=== PATIENT | male | born 1930 | race Caucasian/White ===

== ENCOUNTER 2018-05-20 14:00 | Inpatient (IN) | payer BC ==
[2018-05-20] MEDS ORDERED: SODIUM CHLORIDE 1,000 ML IV STA (14:40)
[2018-05-20] MEDS ORDERED: PIPERACILLIN/TAZOB 4.5 GM 4.5 GM in DEXTROSE 5%-WATER 100 ML IVPB ONE (14:59)
[2018-05-20] MEDS ORDERED: VANCOMYCIN 1,500 MG in DEXTROSE 5%-WATER - 500 ML IVPB ONE (14:59)
--- NOTE | 2018-05-20 15:06 | PDOC ---
History of Present Illness - General Chief Complaint: Wound Stated Complaint: FOOT INFECTION Time Seen by Provider: 05/20/18 14:21 History Source: Patient Exam Limitations: No Limitations - History of Present Illness Initial Comments: This is an 88 YOM with h/o NIDDM, PVD s/p leg stenting, and HTN who was instructed to come to the ED for admission by Dr. Goodwin. The patient reports that for the past few weeks he has had a worsening infection to the left great toe in the nailbed, and the nail of this digit is chronically infected with onychomycosis. The patient notes pain when he touches or moves the area, and also notes worsening swelling and redness to the area. He denies any systemic symptoms (no f/c/n/v/d/c, streaking redness, or other new symptoms) . He was at a wound care appointment for this wound earlier today and based on his evaluation there he was instructed to come to the ED. Past History - Past Medical History Allergies/Adverse Reactions: Allergies Allergy/AdvReac Type Severity Reaction Status Date / Time tomato Allergy Mild Itching Verified 05/20/18 14:05 Home Medications: Ambulatory Orders Aspirin [Megan Chewable] 81 mg PO DAILY 09/03/15 Glipizide/Metformin HCl [Glipizide-Metformin 5-500 mg] 1 tab PO BID 05/20/18 Metoprolol Succinate 25 mg PO DAILY 05/20/18 Ticagrelor [Brilinta -] 90 mg PO BID 05/20/18 COPD: No DVT: No Diabetes: Yes (Type 2) - Immunization History Immunization Up to Date: Yes - Suicide/Smoking/Psychosocial Hx Smoking History: Unknown if ever smoked Have you smoked in the past 12 months: No Information on smoking cessation initiated: No Hx Alcohol Use: No Drug/Substance Use Hx: No Substance Use Type: None Review of Systems - Review of Systems Able to Perform ROS?: Yes Constitutional: No: Chills, Fever, Unexplained wgt Loss HEENTM: No: Nose Congestion, Throat Pain Respiratory: No: Cough, Shortness of Breath Cardiac (ROS): No: Chest Pain, Palpitations ABD/GI: No: Constipated, Diarrhea, Nausea, Vomiting : No: Burning, Dysuria Musculoskeletal: No: Back Pain, Neck Pain Integumentary: Yes: Other (left great toe swelling, redness, discharge, pain). No: Bruising, Rash Neurological: No: Headache, Numbness, Tingling, Weakness, Dizziness Endocrine: No: Unexplained Weight Gain, Unexplained Weight Loss *Physical Exam - Vital Signs Last Vital Signs Temp Pulse Resp BP Pulse Ox 97.4 F L 72 16 133/92 98 05/20/18 14:05 05/20/18 14:05 05/20/18 14:05/20/18 14:05/20/18 14:05 - Physical Exam General Appearance: Yes: Nourished. No: Apparent Distress HEENT: positive: EOMI, Normal Voice, Hearing Grossly Normal. negative: Scleral Icterus (R), Scleral Icterus (L), Nasal Congestion Neck: positive: Trachea midline, Supple. negative: Tender, Rigid Respiratory/Chest: positive: Lungs Clear, Normal Breath Sounds. negative: Respiratory Distress, Crackles, Rhonchi, Stridor, Wheezing Cardiovascular: positive: Regular Rhythm, Regular Rate. negative: Murmur Gastrointestinal/Abdominal: positive: Normal Bowel Sounds, Soft. negative: Tender, Organomegaly, Pulsatile Mass, Guarding Musculoskeletal: positive: Normal Inspection. negative: Decreased Range of Motion, Vertebral Tenderness Extremity: positive: Normal Capillary Refill, Normal Inspection, Normal Range of Motion. negative: Tender, Cyanosis Integumentary: positive: Normal Color, Dry, Warm. negative: Erythema, Rash, Bruising Neurologic: positive: hoe worker II-XII NML intact, Fully Oriented, Alert, Normal Mood/ Affect, Normal Response, Motor Strength 5/5 Heart Score/ECG Review #1 Sinus rhythm, rate of 67, normal axis, 1st degree AV block, one PVC, no ischemic ST-T changes. ED Treatment Course - LABORATORY CBC & Chemistry Diagram: 05/21/18 07:22 05/21/18 07:22 - RADIOLOGY Radiology Studies Ordered: Category Date Time Status CHEST X-RAY PORTABLE* [RAD] Stat Radiology 05/20/18 14:40 Ordered TOE(S) LEFT [RAD] Stat Radiology 05/20/18 14:42 Ordered Medical Decision Making - Medical Decision Making Pt with DM p/w non-healing foot ulcer now appearing infected. Initial Vital Signs Temp Pulse Resp BP Pulse Ox 97.4 F L 72 16 133/92 98 05/20/18 14:05/20/18 14:05 05/20/18 14:05 05/20/18 14:05 05/20/18 14:05 Exam: As noted in Physical Exam section. DDX IBNLT: infected foot ulcer/nailbed, cellulitis, osteomyelitis, necrotizing soft tissue infection, necrotizing myositis, septic arthritis, gangrene, sepsis , etc. W/U ordered: CBCD CMP Mg Phos Lactate BCx Coags T&S ESR CRP EKG CXR Wound Culture UA UCx and X-ray leg to r/o gas. TX ordered: Ofirmev, vancomycin, Zosyn EKG: Reviewed; results as noted in ECG Review section. CXR: Nothing acute XR ankle/foot/toes: Nothing acute Laboratory Tests 05/20/18 05/20/18 05/20/18 14:40 15:00 15:00 WBC 9.7 RBC 4.71 Hgb 14.1 Hct 40.6 MCV 86.2 MCH 30.0 MCHC 34.8 RDW 13.6 Plt Count 164 MPV 8.0 Absolute Neuts (auto) 6.6 Neutrophils % 68.7 Lymphocytes % 13.5 Monocytes % 15.6 H Eosinophils % 1.2 Basophils % 1.0 Nucleated RBC % 0 PT with INR 13.20 H INR 1.17 H PTT (Actin FS) 28.4 Sodium Potassium Chloride Carbon Dioxide Anion Gap BUN Creatinine Creat Clearance w eGFR Random Glucose Lactic Acid 1.8 Calcium Total Bilirubin AST ALT Alkaline Phosphatase C-Reactive Protein Total Protein Albumin Blood Type Antibody Screen 05/20/18 05/20/18 15:00 15:00 WBC RBC Hgb Hct MCV MCH MCHC RDW Plt Count MPV Absolute Neuts (auto) Neutrophils % Lymphocytes % Monocytes % Eosinophils % Basophils % Nucleated RBC % PT with INR INR PTT (Actin FS) Sodium 140 Potassium 3.9 Chloride 107 Carbon Dioxide 26 Anion Gap 7 L BUN 14 Creatinine 1.3 Creat Clearance w eGFR 52.22 Random Glucose 158 H Lactic Acid Calcium 8.7 Total Bilirubin 1.0 AST 20 ALT 22 Alkaline Phosphatase 155 H C-Reactive Protein 0.6 H Total Protein 7.1 Albumin 3.7 Blood Type O POSITIVE Antibody Screen Negative Reassessment: Patient feels well, comfortable with plan to stay. ADMIT The Pt is unsafe for discharge at this time. They require further hospital observation, workup, and treatment. Microblog sent to [facility] for admission. Spoke with admitting team retail wireless sales representative, in agreement Pt to be admitted. Decision to Admit order placed to admitting team covering attending. *DC/Admit/Observation/Transfer Diagnosis at time of Disposition: Wound infection, PVD (peripheral vascular disease) Diabetes Qualifiers: Diabetes mellitus type: other specified (including SHIN) Diabetes mellitus halfway insulin use: unspecified buttermaker helper insulin use status Diabetes mellitus complication status: with unspecified complications Qualified Code(s): E13.8 - Other specified diabetes mellitus with unspecified complications - Discharge Dispostion Condition at time of disposition: Guarded Decision to Admit order: Yes - Referrals - Patient Instructions - Post Discharge Activity
[2018-05-20] MEDS ORDERED: PIPERACILLIN/TAZOB 4.5 GM 4.5 GM/100 ML BAG IVPB ONE (15:15)
[2018-05-20 15:19] LABS: EOS % 1.2 % (0-4.5); HEMATOCRIT 40.6 % (35.4-49); HEMOGLOBIN 14.1 GM/dL (11.7-16.9); LYMPH % 13.5 % (8-40); MCHC 34.8 g/dl (32.0-35.9); MEAN CELL VOLUME 86.2 fl (80-96); MONO % 15.6 % (3.8-10.2); NEUT % 68.7 % (42.8-82.8); PLATELET COUNT 164 K/MM3 (134-434); RBC 4.71 M/mm3 (4.00-5.60); RDW 13.6 % (11.9-15.9); WHITE BLOOD COUNT 9.7 K/mm3 (4.0-10.0)
[2018-05-20 15:29] LABS: INR 1.17 (0.83-1.09); PROTHROMBIN TIME (PATIENT) 13.2 SEC (9.7-13.0)
[2018-05-20 15:32] LABS: ACTIVATED PTT 28.4 SECONDS (25.2-36.5)
[2018-05-20 15:35] LABS: ALBUMIN 3.7 g/dl (3.4-5.0); ANION GAP 7 (8-16); BLOOD UREA NITROGEN 14 mg/dL (7-18); CALCIUM 8.7 mg/dL (8.5-10.1); CHLORIDE 107 mmol/L (98-107); CO2 26 mmol/L (21-32); CREATININE 1.3 mg/dL (0.7-1.3); GLUCOSE,RANDOM 158 mg/dL (74-106); POTASSIUM 3.9 mmol/L (3.5-5.1); SGOT/AST 20 U/L (15-37); SGPT/ALT 22 U/L (12-78); SODIUM 140 mmol/L (136-145); TOT PROT 7.1 g/dl (6.4-8.2)
[2018-05-20 15:36] LABS: ALK PHOS 155 U/L (45-117)
--- NOTE | 2018-05-20 17:33 | PDOC ---
Attending Attestation - Resident Resident Name: Gabby Kelly - ED Attending Attestation I have performed the following: I have examined & evaluated the patient, The case was reviewed & discussed with the resident, I agree w/resident's findings & plan, Exceptions are as noted - HPI HPI: 05/20/18 17:31 The patient is an 88 year old male with a significant past medical history of peripheral vascular disease and non-insulin dependent diabetes who presents to the emergency department for evaluation of left toe pain. The patient reports moderate left toe pain. Pt presents with a left great toe nail bed infection that has been ongoing for 3 weeks. He notes the pain is exacerbated with toe movement. He notes a decrease in sensation of both feet secondary to his diabetes. Pt was seen at the wound care clinic today who sent him down to the emergency department for further workup and admission. The patient denies chest pain, shortness of breath, headache, and dizziness. Denies fever, chills, nausea, vomiting, and any bowel/urinary symptoms. Allergies: Tomato Social History: No reported alcohol, cigarette, or drug use. PCP: Dr. Prabhakar Monique - Physicial Exam PE: 05/20/18 17:32 agree with resident exam - Medical Decision Making 05/20/18 17:33 Pt to be admitted for diabetic foot ulcer. Vitals stable. Covered with Marisol/ Valentino
[2018-05-20 17:50] VITALS: BMI 23.2
[2018-05-20] MEDS ORDERED: PIPERACILLIN/TAZOBACTAM 3.375 GM VIAL IVPB ONE ×2 (18:15→23:30)
[2018-05-20] MEDS ORDERED: DEXTROSE 5%-WATER - 50 ML IVPB ONE ×2 (18:16→23:30)
[2018-05-20] MEDS: PIPERACILLIN/TAZOB 3.375 GM 3.375 GM in DEXTROSE 5%-WATER - 50 ML IVPB SCH (19:00)
[2018-05-21] MEDS: PIPERACILLIN/TAZOB 3.375 GM 3.375 GM in DEXTROSE 5%-WATER - 50 ML IVPB SCH ×3 (01:08→17:47)
[2018-05-21] MEDS ORDERED: ACETAMINOPHEN 325 MG TABLET (FP) PO PRN (06:13)
[2018-05-21] MEDS: glipiZIDE 5 MG TABLET (FP) PO SCH ×2 (06:27→16:25)
[2018-05-21] MEDS: INSULIN SLIDING SCALE (NOVOLOG) 1 VIAL SQ SCH ×4 (06:33→21:11)
[2018-05-21] MEDS ORDERED: metFORMIN HCL 500 MG TABLET (FP) PO SCH (07:00)
[2018-05-21 07:45] LABS: HEMATOCRIT 36.3 % (35.4-49); HEMOGLOBIN 12.8 GM/dL (11.7-16.9); MCH 30.1 pg (25.7-33.7); MCHC 35.4 g/dl (32.0-35.9); MEAN CELL VOLUME 85.1 fl (80-96); MEAN PLT VOLUME 8.1 fl (7.5-11.1); PLATELET COUNT 123 K/MM3 (134-434); RBC 4.27 M/mm3 (4.00-5.60); RDW 13.1 % (11.9-15.9); WHITE BLOOD COUNT 6.9 K/mm3 (4.0-10.0)
[2018-05-21 08:01] LABS: ALBUMIN 3.1 g/dl (3.4-5.0); ANION GAP 8 (8-16); BLOOD UREA NITROGEN 12 mg/dL (7-18); CALCIUM 8.4 mg/dL (8.5-10.1); CHLORIDE 112 mmol/L (98-107); CHOLESTEROL 137 mg/dL (50-200); CO2 23 mmol/L (21-32); CREATININE 1.2 mg/dL (0.7-1.3); GLUCOSE,RANDOM 147 mg/dL (74-106); POTASSIUM 3.8 mmol/L (3.5-5.1); SGOT/AST 19 U/L (15-37); SGPT/ALT 17 U/L (12-78); SODIUM 143 mmol/L (136-145)
[2018-05-21 08:03] LABS: ALK PHOS 133 U/L (45-117); BILIRUBIN,TOTAL 0.9 mg/dL (0.2-1.0); HDL CHOLESTEROL 27 mg/dL (40-60); TOT PROT 6.1 g/dl (6.4-8.2); TRIGLYCERIDES 238 mg/dL (35-160)
[2018-05-21] MEDS ORDERED: DEXTROSE 5%-WATER - 50 ML IVPB ONE ×3 (09:17→23:26)
[2018-05-21] MEDS ORDERED: PIPERACILLIN/TAZOBACTAM 3.375 GM VIAL IVPB ONE ×3 (09:17→23:26)
[2018-05-21] MEDS ORDERED: PT OWN MED DRAWER 7, Y5N ONE (09:17)
[2018-05-21] MEDS: TICAGRELOR 90 MG TABLET PO SCH ×2 (09:26→21:09)
[2018-05-21] MEDS: metoPROLOL SUCCINATE 25 MG TAB.SR.24H (FP) PO SCH (09:26)
--- NOTE | 2018-05-21 10:14 | HP ---
Admitting History and Physical - Primary Care Physician PCP: Rose Becker - Admission Chief Complaint: diabetic foot ulcer History of Present Illness: This is an 88 YOM with h/o NIDDM, PVD s/p leg stenting, and HTN who was instructed to come to the ED for admission by Dr. Goodwin. The patient reports that for the past few weeks he has had a worsening infection to the left great toe in the nailbed, and the nail of this digit is chronically infected with onychomycosis. The patient notes pain when he touches or moves the area, and also notes worsening swelling and redness to the area. He denies any systemic symptoms (no f/c/n/v/d/c, streaking redness, or other new symptoms) . He was at a wound care appointment for this wound earlier today and based on his evaluation there he was instructed to come to the ED. Patient states that he was given Augmentin, but before he could pickle solution maker the prescription, he ended up in the ER. He denies any fever, pain or discomfort History Source: Patient, Medical Record Limitations to Obtaining History: No Limitations - Smoking History Smoking history: Unknown if ever smoked Have you smoked in the past 12 months: No - Alcohol/Substance Use Hx Alcohol Use: No Home Medications - Allergies Allergies/Adverse Reactions: Allergies Allergy/AdvReac Type Severity Reaction Status Date / Time tomato Allergy Mild Itching Verified 05/20/18 14:05 - Home Medications Home Medications: Ambulatory Orders Aspirin [Megan Chewable] 81 mg PO DAILY 09/03/15 Glipizide/Metformin HCl [Glipizide-Metformin 5-500 mg] 1 tab PO BID 05/20/18 Metoprolol Succinate 25 mg PO DAILY 05/20/18 Ticagrelor [Brilinta -] 90 mg PO BID 05/20/18 Review of Systems - Review of Systems Constitutional: reports: No Symptoms Eyes: reports: No Symptoms HENT: reports: No Symptoms Neck: reports: No Symptoms Cardiovascular: reports: No Symptoms Respiratory: reports: No Symptoms Gastrointestinal: reports: No Symptoms Genitourinary: reports: No Symptoms Breasts: reports: No Symptoms Reported Musculoskeletal: reports: Other (left great toe erythema) Integumentary: reports: No Symptoms Neurological: reports: No Symptoms Endocrine: reports: No Symptoms Hematology/Lymphatic: reports: No Symptoms Physical Examination Vital Signs: Vital Signs Temperature 98.1 F 05/21/18 05:00 Pulse Rate 87 05/21/18 05:00 Respiratory Rate 18 05/21/18 05:00 Blood Pressure 119/65 05/21/18 05:00 O2 Sat by Pulse Oximetry (%) 100 05/20/18 21:00 Constitutional: Yes: Well Nourished, No Distress, Calm Cardiovascular: Yes: Regular Rate and Rhythm Respiratory: Yes: Regular Gastrointestinal: Yes: Normal Bowel Sounds, Soft Musculoskeletal: Yes: WNL Extremities: Yes: WNL Edema: No Peripheral Pulses WNL: Yes Wound/Incision: Yes: Dressing Removed, Draining (mild) Neurological: Yes: Alert, Oriented Psychiatric: Yes: Alert, Oriented Labs: CBC, BMP 05/21/18 07:22 05/21/18 07:22 Problem List - Problems (1) Diabetes Assessment/Plan: -hold metformin during hospital stay -Novolog sliding scale -Diabetic diet -Check A1C -RD consult -Continue Glipizide -BGM ACHS Code(s): E11.9 - TYPE 2 DIABETES MELLITUS WITHOUT COMPLICATIONS (2) PVD (peripheral vascular disease) Code(s): I73.9 - PERIPHERAL VASCULAR DISEASE, UNSPECIFIED (3) Wound infection Assessment/Plan: -Podiatry consult -ID on board -IV abx -Await Wound culture -Awaiting triphasic bone scan, as he refuses to do MRI Code(s): T14.8XXA - OTHER INJURY OF UNSPECIFIED BODY REGION, INITIAL ENCOUNTER; L08.9 - LOCAL INFECTION OF THE SKIN AND SUBCUTANEOUS TISSUE, UNSP Assessment/Plan see problem list self ambulatory DVT prophylaxis: Heparin 5000 U TID Dispo: Home with VNS and wound care center
--- NOTE | 2018-05-21 10:34 | CON.ID ---
Consult Consult Specialty:: infectious diseases Referred by:: Reason for Consultation:: non healing wound and cellulitis of the foot - History of Present Illness Chief Complaint: non healing wound of the leg and cellulitits of the foot History of Present Illness: 88 year old male with a significant past medical history of peripheral vascular disease and non-insulin dependent diabetes who presents to the admitted for left toe pain. The patient reports moderate left toe pain. Pt presents with a left great toe nail bed infection that has been ongoing for 3 weeks. He notes the pain is exacerbated with toe movement. He notes a decrease in sensation of both feet secondary to his diabetes The patient denies chest pain, shortness of breath, headache, and dizziness. Denies fever, chills, nausea, vomiting, and any bowel/urinary symptoms. patient has multiple medical problems including dm cva pvd patient being admitted for cellulitits to see if the patient has osteo of the foot and wound infection otherwise patient is comfortable patient is a bit claustrophobic for mri and refuses to get one done - History Source History Provided By: Patient, Medical Record Limitations to Obtaining History: No Limitations - Alcohol/Substance Use Hx Alcohol Use: No - Smoking History Smoking history: Unknown if ever smoked Have you smoked in the past 12 months: No Home Medications - Allergies Allergies/Adverse Reactions: Allergies Allergy/AdvReac Type Severity Reaction Status Date / Time tomato Allergy Mild Itching Verified 05/20/18 14:05 - Home Medications Home Medications: Ambulatory Orders Aspirin [Megan Chewable] 81 mg PO DAILY 09/03/15 Glipizide/Metformin HCl [Glipizide-Metformin 5-500 mg] 1 tab PO BID 05/20/18 Metoprolol Succinate 25 mg PO DAILY 05/20/18 Ticagrelor [Brilinta -] 90 mg PO BID 05/20/18 Review of Systems - Review of Systems Constitutional: reports: No Symptoms Eyes: reports: No Symptoms HENT: reports: No Symptoms Neck: reports: No Symptoms Cardiovascular: reports: No Symptoms Respiratory: reports: No Symptoms Gastrointestinal: reports: No Symptoms Genitourinary: reports: No Symptoms Integumentary: reports: Change in Color, Erythema, Wound (left great toe) Neurological: reports: No Symptoms Endocrine: reports: No Symptoms Hematology/Lymphatic: reports: No Symptoms Psychiatric: reports: No Symptoms Physical Exam Vital Signs: Vital Signs Temperature 98.1 F 05/21/18 05:00 Pulse Rate 87 05/21/18 05:00 Respiratory Rate 18 05/21/18 05:00 Blood Pressure 119/65 05/21/18 05:00 O2 Sat by Pulse Oximetry (%) 100 05/20/18 21:00 Constitutional: Yes: Well Nourished, Calm, Mild Distress Cardiovascular: Yes: Regular Rate and Rhythm Respiratory: Yes: Regular, CTA Bilaterally Gastrointestinal: Yes: Normal Bowel Sounds, Soft Musculoskeletal: Yes: Other Extremities: Yes: Erythema (left foot), Other Integumentary: Yes: Erythema Wound/Incision: Yes: Clean/Dry Neurological: Yes: Alert, Oriented Psychiatric: Yes: Alert, Oriented Labs: CBC, BMP 05/21/18 07:22 05/21/18 07:22 Imaging - Results Chest X-ray: Report Reviewed, Image Reviewed X-ray: Image Reviewed (awaiting report) Assessment/Plan patient coming with cellulittis of the leg and toe injury with dm and pvd with a worry for infection and suspected osteo r/o osteo wound infection cellulitis of the left foot pain left foot plan continue abx await for wound cx to be back patient refusing mri will get a triphase bone scan
--- NOTE | 2018-05-21 14:28 | CONSULT ---
Consult - text type - Consultation Consultation Note: Patient sent by me to ER from [facility] yesterday for cellulitis left big toe. vss. Tmax 97.5 +greatly improved cellulitis left big toe, macerated nail bed, wbc=6.9, awaiting triphasic bone scan results r/o om cellulitis Awaiting triphasic bone scan. Betadine dressing change daily to left big toe. IVABX as per ID apparent positive blood culture. Reviewed xray.
[2018-05-21] MEDS: ROSUVASTATIN CA 5 MG TABLET (FP) PO SCH (21:36)
[2018-05-22] MEDS: PIPERACILLIN/TAZOB 3.375 GM 3.375 GM in DEXTROSE 5%-WATER - 50 ML IVPB SCH ×3 (01:26→17:52)
[2018-05-22] MEDS: INSULIN SLIDING SCALE (NOVOLOG) 1 VIAL SQ SCH ×4 (06:12→21:57)
[2018-05-22] MEDS: glipiZIDE 5 MG TABLET (FP) PO SCH ×2 (06:12→16:55)
[2018-05-22 08:04] LABS: BASO % 1.4 % (0-2.0); EOS % 3.4 % (0-4.5); HEMATOCRIT 36.1 % (35.4-49); HEMOGLOBIN 12.8 GM/dL (11.7-16.9); LYMPH % 18.9 % (8-40); MCH 30.5 pg (25.7-33.7); MCHC 35.6 g/dl (32.0-35.9); MEAN CELL VOLUME 85.6 fl (80-96); MEAN PLT VOLUME 8.3 fl (7.5-11.1); MONO % 14.5 % (3.8-10.2); NEUT % 61.8 % (42.8-82.8); PLATELET COUNT 130 K/MM3 (134-434); RBC 4.22 M/mm3 (4.00-5.60); RDW 13.2 % (11.9-15.9); WHITE BLOOD COUNT 6.2 K/mm3 (4.0-10.0)
[2018-05-22 08:46] LABS: ANION GAP 11 (8-16); BLOOD UREA NITROGEN 12 mg/dL (7-18); CALCIUM 8.5 mg/dL (8.5-10.1); CHLORIDE 110 mmol/L (98-107); CO2 22 mmol/L (21-32); CREATININE 1.1 mg/dL (0.7-1.3); GLUCOSE,RANDOM 114 mg/dL (74-106); POTASSIUM 3.7 mmol/L (3.5-5.1); SGOT/AST 19 U/L (15-37); SGPT/ALT 18 U/L (12-78); SODIUM 143 mmol/L (136-145)
[2018-05-22 08:48] LABS: ALK PHOS 122 U/L (45-117); BILIRUBIN,TOTAL 0.9 mg/dL (0.2-1.0)
--- NOTE | 2018-05-22 09:12 | EKG ---
Test Reason : Blood Pressure : / mmHG Vent. Rate : 067 BPM Atrial Rate : 067 BPM P-R Int : 232 ms QRS Dur : 082 ms QT Int : 436 ms P-R-T Axes : 033 -02 039 degrees QTc Int : 460 ms POOR DATA QUALITY, INTERPRETATION MAY BE ADVERSELY AFFECTED SINUS RHYTHM WITH 1ST DEGREE A-V BLOCK WITH OCCASIONAL PREMATURE VENTRICULAR COMPLEXES OTHERWISE NORMAL ECG NO PREVIOUS ECGS AVAILABLE Confirmed by KARINA SPRAGUE, LUIS ([id number]) on 05/22/2018 9:12:18 AM Referred By: Confirmed By:LUIS COLLINS MD
[2018-05-22] MEDS ORDERED: PIPERACILLIN/TAZOBACTAM 3.375 GM VIAL IVPB ONE ×2 (10:41→17:46)
[2018-05-22] MEDS ORDERED: PT OWN MED DRAWER 7, Y5N ONE ×2 (10:41→20:32)
[2018-05-22] MEDS ORDERED: DEXTROSE 5%-WATER - 50 ML IVPB ONE ×2 (10:41→17:47)
[2018-05-22] MEDS: TICAGRELOR 90 MG TABLET PO SCH ×2 (10:43→21:55)
[2018-05-22] MEDS: metoPROLOL SUCCINATE 25 MG TAB.SR.24H (FP) PO SCH (10:43)
--- NOTE | 2018-05-22 10:51 | PN ---
Progress Note, Physician History of Present Illness: Infectious Disease Progress note: Pt seen and examined. States he notices less Lt 1st toe erythema. Tolerating antibiotics, without specific complaints. - Current Medication List Current Medications: Active Medications Acetaminophen (Tylenol -) 650 mg PO Q6H PRN PRN Reason: PAIN OR FEVER Glipizide (Glucotrol -) 5 mg PO BID@0700,1630 [facility] Last Admin: 05/22/18 06:12 Dose: 5 mg Piperacillin Sod/Tazobactam (Sod 3.375 gm/ Dextrose) 50 mls @ 100 mls/hr IVPB Q8H-IV [facility]; Protocol Last Admin: 05/22/18 01:26 Dose: 100 mls/hr Insulin Aspart (Novolog Vial Sliding Scale -) 1 vial SQ ACHS [facility]; Protocol Last Admin: 05/22/18 06:12 Dose: Not Given Metoprolol Succinate (Toprol Xl -) 25 mg PO DAILY [facility] Last Admin: 05/21/18 09:26 Dose: 25 mg Rosuvastatin Calcium (Crestor -) 5 mg PO HS [facility] Last Admin: 05/21/18 21:36 Dose: 5 mg Ticagrelor (Brilinta -) 90 mg PO BID [facility] Last Admin: 05/21/18 21:09 Dose: 90 mg - Objective Vital Signs: Vital Signs Temperature 98 F 05/22/18 08:29 Pulse Rate 87 05/22/18 08:29 Respiratory Rate 20 05/22/18 08:29 Blood Pressure 132/76 05/22/18 08:29 O2 Sat by Pulse Oximetry (%) 98 05/21/18 21:00 Constitutional: Yes: No Distress, Calm Cardiovascular: Yes: Regular Rate and Rhythm Respiratory: Yes: Regular Gastrointestinal: Yes: Normal Bowel Sounds, Soft Genitourinary: Yes: WNL Musculoskeletal: Yes: WNL Wound/Incision: Yes: Other (Lt first toe minimal erythema, +purulent drainage from underneath distal portion of nailbed, no necrosis/cyanosis) Neurological: Yes: Alert, Oriented Labs: CBC, BMP 05/22/18 06:30 05/22/18 06:30 INR, PTT INR 1.17 (0.83-1.09) H 05/20/18 15:00 Microbiology 05/20/18 16:40 Wound Gram Stain - Final 05/20/18 16:40 Wound Wound Culture - Preliminary Presumptive Mssa (Pbp2a Neg) Pending Organism 05/20/18 14:45 Blood - Peripheral Venous Blood Culture - Preliminary Alpha Hemolytic Streptococcus 05/20/18 15:00 Blood - Peripheral Venous Blood Culture - Preliminary Pending Organism - ....Imaging Other: Report Reviewed (3-phase bone scan Lt foot: +indication of OM in Lt 1st toe distal phalanx) Problem List - Problems (1) Diabetes Code(s): E11.9 - TYPE 2 DIABETES MELLITUS WITHOUT COMPLICATIONS Qualifiers: Diabetes mellitus type: other specified (including SHIN) Diabetes mellitus long term care administrator insulin use: unspecified prison insulin use status Diabetes mellitus complication status: with unspecified complications Qualified Code(s) : E13.8 - Other specified diabetes mellitus with unspecified complications (2) PVD (peripheral vascular disease) Code(s): I73.9 - PERIPHERAL VASCULAR DISEASE, UNSPECIFIED (3) Wound infection Code(s): T14.8XXA - OTHER INJURY OF UNSPECIFIED BODY REGION, INITIAL ENCOUNTER; L08.9 - LOCAL INFECTION OF THE SKIN AND SUBCUTANEOUS TISSUE, UNSP Assessment/Plan 88 y.o. male with PMH of NIDDM, PVD, Lt 1st toe trauma/wound presenting with Lt toe/foot erythema/purulent drainage x 3 wks, decreased sensation in feet. Triple -phase bone scan results and microbiology results noted Lt distal 1st toe cellulitis/ Acute OM Streptococcal bacteremia NIDDM PVD - continue current antibiotics, adjust once final culture results available - repeat Blood cultures - podiatry f/u - continue wound care - needs tight glycemic control
--- NOTE | 2018-05-22 15:47 | PN ---
Progress Note, Physician Chief Complaint: EVENTS AND NOTES REVIEWED AWAKE ALERT DENIES PAIN - Current Medication List Current Medications: Active Medications Acetaminophen (Tylenol -) 650 mg PO Q6H PRN PRN Reason: PAIN OR FEVER Glipizide (Glucotrol -) 5 mg PO BID@0700,1630 [facility] Last Admin: 05/22/18 06:12 Dose: 5 mg Piperacillin Sod/Tazobactam (Sod 3.375 gm/ Dextrose) 50 mls @ 100 mls/hr IVPB Q8H-IV [facility]; Protocol Last Admin: 05/22/18 10:44 Dose: 100 mls/hr Insulin Aspart (Novolog Vial Sliding Scale -) 1 vial SQ ACHS [facility]; Protocol Last Admin: 05/22/18 11:48 Dose: 2 units Metoprolol Succinate (Toprol Xl -) 25 mg PO DAILY [facility] Last Admin: 05/22/18 10:43 Dose: 25 mg Rosuvastatin Calcium (Crestor -) 5 mg PO HS [facility] Last Admin: 05/21/18 21:36 Dose: 5 mg Ticagrelor (Brilinta -) 90 mg PO BID [facility] Last Admin: 05/22/18 10:43 Dose: 90 mg - Objective Vital Signs: Vital Signs Temperature 98.0 F 05/22/18 15:20 Pulse Rate 59 L 05/22/18 15:20 Respiratory Rate 18 05/22/18 15:20 Blood Pressure 156/64 05/22/18 15:20 O2 Sat by Pulse Oximetry (%) 98 05/21/18 21:00 Constitutional: Yes: Mild Distress Eyes: Yes: WNL HENT: Yes: WNL Neck: Yes: WNL Cardiovascular: Yes: WNL Respiratory: Yes: WNL Gastrointestinal: Yes: WNL Genitourinary: Yes: WNL Musculoskeletal: Yes: Other Extremities: Yes: Other Edema: No Peripheral Pulses WNL: Yes Integumentary: Yes: Pressure Ulcer, Rash, Other Wound/Incision: Yes: Dressing Dry and Intact Neurological: Yes: Pre-Existing Deficit ...Motor Strength: LLE Psychiatric: Yes: WNL Labs: CBC, BMP 05/22/18 06:30 05/22/18 06:30 INR, PTT INR 1.17 (0.83-1.09) H 05/20/18 15:00 Problem List - Problems (1) Osteomyelitis Code(s): M86.9 - OSTEOMYELITIS, UNSPECIFIED (2) Diabetic foot ulcer with osteomyelitis Code(s): E11.621 - TYPE 2 DIABETES MELLITUS WITH FOOT ULCER; E11.69 - TYPE 2 DIABETES MELLITUS WITH OTHER SPECIFIED COMPLICATION; L97.509 - NON-PRESSURE CHRONIC ULCER OTH PRT UNSP FOOT W UNSP SEVERITY; M86.9 - OSTEOMYELITIS, UNSPECIFIED (3) Diabetic neuropathy Code(s): E11.40 - TYPE 2 DIABETES MELLITUS WITH DIABETIC NEUROPATHY, UNSP (4) Diabetes Code(s): E11.9 - TYPE 2 DIABETES MELLITUS WITHOUT COMPLICATIONS Qualifiers: Diabetes mellitus type: other specified (including SHIN) Diabetes mellitus watermelon inspector insulin use: unspecified watermelon inspector insulin use status Diabetes mellitus complication status: with unspecified complications Qualified Code(s) : E13.8 - Other specified diabetes mellitus with unspecified complications (5) PVD (peripheral vascular disease) Code(s): I73.9 - PERIPHERAL VASCULAR DISEASE, UNSPECIFIED (6) Wound infection Code(s): T14.8XXA - OTHER INJURY OF UNSPECIFIED BODY REGION, INITIAL ENCOUNTER; L08.9 - LOCAL INFECTION OF THE SKIN AND SUBCUTANEOUS TISSUE, UNSP (7) Pins and needles sensation Code(s): R20.2 - PARESTHESIA OF SKIN Assessment/Plan BONE SCAN + OSTEOMYELITIS ID CONSULT ENDOCRINE CONSULT FOR DM CONTROL SSI DIETARY CONSULT FOR DM EDUCATION AND MENUS
--- NOTE | 2018-05-22 18:45 | PN ---
Progress Note (short form) - Note Progress Note: FUV left big toe. vss. Tmax 98.0 +resolved cellulitis left big toe, +om on bone scan, +improved macerated nail bed, wbc=6.2, om cellulitis Betadine dressing change daily to left big toe. IVABX as per ID. HBO consult. will follow till dc.
[2018-05-22] MEDS: ROSUVASTATIN CA 5 MG TABLET (FP) PO SCH (21:55)
[2018-05-23] MEDS ORDERED: PIPERACILLIN/TAZOBACTAM 3.375 GM VIAL IVPB ONE ×2 (02:09→09:29)
[2018-05-23] MEDS ORDERED: DEXTROSE 5%-WATER - 50 ML IVPB ONE ×2 (02:10→09:29)
[2018-05-23] MEDS: PIPERACILLIN/TAZOB 3.375 GM 3.375 GM in DEXTROSE 5%-WATER - 50 ML IVPB SCH ×2 (02:14→09:35)
[2018-05-23] MEDS: glipiZIDE 5 MG TABLET (FP) PO SCH ×2 (06:56→17:39)
[2018-05-23] MEDS: INSULIN SLIDING SCALE (NOVOLOG) 1 VIAL SQ SCH ×4 (07:25→21:55)
[2018-05-23] MEDS ORDERED: PT OWN MED DRAWER 7, Y5N ONE ×2 (09:29→21:52)
--- NOTE | 2018-05-23 09:30 | PN ---
Progress Note, Physician Chief Complaint: AWAKE ALERT DENIES FEVER OR CHILLS - Current Medication List Current Medications: Active Medications Acetaminophen (Tylenol -) 650 mg PO Q6H PRN PRN Reason: PAIN OR FEVER Glipizide (Glucotrol -) 5 mg PO BID@0700,1630 [facility] Last Admin: 05/23/18 06:56 Dose: 5 mg Piperacillin Sod/Tazobactam (Sod 3.375 gm/ Dextrose) 50 mls @ 100 mls/hr IVPB Q8H-IV [facility]; Protocol Last Admin: 05/23/18 02:14 Dose: 100 mls/hr Insulin Aspart (Novolog Vial Sliding Scale -) 1 vial SQ ACHS [facility]; Protocol Last Admin: 05/23/18 07:25 Dose: Not Given Metoprolol Succinate (Toprol Xl -) 25 mg PO DAILY [facility] Last Admin: 05/22/18 10:43 Dose: 25 mg Rosuvastatin Calcium (Crestor -) 5 mg PO HS [facility] Last Admin: 05/22/18 21:55 Dose: 5 mg Ticagrelor (Brilinta -) 90 mg PO BID [facility] Last Admin: 05/22/18 21:55 Dose: 90 mg - Objective Vital Signs: Vital Signs Temperature 97.8 F 05/23/18 07:02 Pulse Rate 68 05/23/18 07:02 Respiratory Rate 20 05/23/18 07:02 Blood Pressure 132/60 05/23/18 07:02 O2 Sat by Pulse Oximetry (%) 100 05/22/18 21:00 Constitutional: Yes: No Distress Eyes: Yes: WNL HENT: Yes: WNL Neck: Yes: WNL Cardiovascular: Yes: WNL Respiratory: Yes: WNL Gastrointestinal: Yes: WNL Genitourinary: Yes: WNL Musculoskeletal: Yes: WNL Extremities: Yes: Erythema Edema: No Peripheral Pulses WNL: Yes Integumentary: Yes: Erythema Wound/Incision: Yes: Open to air, Dressing Removed Neurological: Yes: Pre-Existing Deficit ...Motor Strength: LLE Psychiatric: Yes: Other Labs: CBC, BMP 05/22/18 06:30 05/22/18 06:30 INR, PTT INR 1.17 (0.83-1.09) H 05/20/18 15:00 Problem List - Problems (1) Osteomyelitis Code(s): M86.9 - OSTEOMYELITIS, UNSPECIFIED (2) Diabetic foot ulcer with osteomyelitis Code(s): E11.621 - TYPE 2 DIABETES MELLITUS WITH FOOT ULCER; E11.69 - TYPE 2 DIABETES MELLITUS WITH OTHER SPECIFIED COMPLICATION; L97.509 - NON-PRESSURE CHRONIC ULCER OTH PRT UNSP FOOT W UNSP SEVERITY; M86.9 - OSTEOMYELITIS, UNSPECIFIED (3) Diabetic neuropathy Code(s): E11.40 - TYPE 2 DIABETES MELLITUS WITH DIABETIC NEUROPATHY, UNSP (4) Diabetes Code(s): E11.9 - TYPE 2 DIABETES MELLITUS WITHOUT COMPLICATIONS Qualifiers: Diabetes mellitus type: other specified (including SHIN) Diabetes mellitus penitentiary insulin use: unspecified penitentiary insulin use status Diabetes mellitus complication status: with unspecified complications Qualified Code(s) : E13.8 - Other specified diabetes mellitus with unspecified complications (5) PVD (peripheral vascular disease) Code(s): I73.9 - PERIPHERAL VASCULAR DISEASE, UNSPECIFIED (6) Wound infection Code(s): T14.8XXA - OTHER INJURY OF UNSPECIFIED BODY REGION, INITIAL ENCOUNTER; L08.9 - LOCAL INFECTION OF THE SKIN AND SUBCUTANEOUS TISSUE, UNSP (7) Pins and needles sensation Code(s): R20.2 - PARESTHESIA OF SKIN Assessment/Plan AWAIT FOR SENSITIVITY TO ORGANISM ON BLOOD CULTURES WILL PREPARE PICC LINE ONCE ORGANISM IS ESTABLISHED ID AND PODIATRY F/U APPRECIATED PT EVAL [facility] UNTIL AMBULATING
[2018-05-23] MEDS: TICAGRELOR 90 MG TABLET PO SCH ×2 (09:35→21:55)
[2018-05-23] MEDS: metoPROLOL SUCCINATE 25 MG TAB.SR.24H (FP) PO SCH ×2 (09:35→09:40)
--- NOTE | 2018-05-23 11:55 | PN ---
Progress Note, Physician History of Present Illness: Infectious Disease Progress Note: Pt states he feels well. Denies having any specific complaints. Tolerating antibiotics. Denies pain in Lt foot. - Current Medication List Current Medications: Active Medications Acetaminophen (Tylenol -) 650 mg PO Q6H PRN PRN Reason: PAIN OR FEVER Glipizide (Glucotrol -) 5 mg PO BID@0700,1630 [facility] Last Admin: 05/23/18 06:56 Dose: 5 mg Piperacillin Sod/Tazobactam (Sod 3.375 gm/ Dextrose) 50 mls @ 100 mls/hr IVPB Q8H-IV [facility]; Protocol Last Admin: 05/23/18 09:35 Dose: 100 mls/hr Insulin Aspart (Novolog Vial Sliding Scale -) 1 vial SQ ACHS [facility]; Protocol Last Admin: 05/23/18 07:25 Dose: Not Given Insulin Detemir (Levemir Vial) 20 units SQ AM [facility] Metoprolol Succinate (Toprol Xl -) 25 mg PO DAILY [facility] Last Admin: 05/23/18 09:40 Dose: Not Given Rosuvastatin Calcium (Crestor -) 5 mg PO HS [facility] Last Admin: 05/22/18 21:55 Dose: 5 mg Ticagrelor (Brilinta -) 90 mg PO BID [facility] Last Admin: 05/23/18 09:35 Dose: 90 mg - Objective Vital Signs: Vital Signs Temperature 97.8 F 05/23/18 07:02 Pulse Rate 68 05/23/18 07:02 Respiratory Rate 20 05/23/18 07:02 Blood Pressure 132/60 05/23/18 07:02 O2 Sat by Pulse Oximetry (%) 100 05/22/18 21:00 Constitutional: Yes: No Distress, Calm Cardiovascular: Yes: Regular Rate and Rhythm Respiratory: Yes: Regular Gastrointestinal: Yes: Normal Bowel Sounds, Soft Genitourinary: Yes: WNL Musculoskeletal: Yes: WNL Extremities: Yes: Erythema (Lt 1st toe with less erythema, still with small out of purulence expressed with pressure) Wound/Incision: Yes: Dressing Dry and Intact Neurological: Yes: Alert, Oriented Labs: CBC, BMP 05/22/18 06:30 05/22/18 06:30 INR, PTT INR 1.17 (0.83-1.09) H 05/20/18 15:00 Microbiology 05/22/18 11:20 Blood - Peripheral Venous Blood Culture - Preliminary NO GROWTH OBTAINED AFTER 24 HOURS, INCUBATION TO CONTINUE FOR 4 DAYS. 05/20/18 16:40 Wound Gram Stain - Final 05/20/18 16:40 Wound Wound Culture - Preliminary Staphylococcus Aureus Strep Agalactiae Group B 05/20/18 14:45 Blood - Peripheral Venous Blood Culture - Final Streptococcus Intermedius 05/20/18 15:00 Blood - Peripheral Venous Blood Culture - Preliminary Pending Organism Problem List - Problems (1) Diabetes Code(s): E11.9 - TYPE 2 DIABETES MELLITUS WITHOUT COMPLICATIONS Qualifiers: Diabetes mellitus type: other specified (including SHIN) Diabetes mellitus exterminator insulin use: unspecified shelter insulin use status Diabetes mellitus complication status: with unspecified complications Qualified Code(s) : E13.8 - Other specified diabetes mellitus with unspecified complications (2) PVD (peripheral vascular disease) Code(s): I73.9 - PERIPHERAL VASCULAR DISEASE, UNSPECIFIED (3) Wound infection Code(s): T14.8XXA - OTHER INJURY OF UNSPECIFIED BODY REGION, INITIAL ENCOUNTER; L08.9 - LOCAL INFECTION OF THE SKIN AND SUBCUTANEOUS TISSUE, UNSP Assessment/Plan 88 y.o. male with PMH of NIDDM, PVD, Lt 1st toe trauma/wound presenting with Lt toe/foot erythema/purulent drainage x 3 wks, decreased sensation in feet. Triple -phase bone scan results and microbiology results noted Lt distal 1st toe cellulitis/ Acute OM / culture - MSSA and Streptococcus sp. in wound cultures Streptococcal bacteremia NIDDM PVD - d/c Zosyn, start Ceftriaxone - f/u repeat blood culture results - podiatry f/u - continue wound care - maintain tight glycemic control
[2018-05-23] MEDS ORDERED: DEXTROSE 5%-WATER 100 ML IVPB ONE (13:26)
[2018-05-23] MEDS: CEFTRIAXONE 2 GM in DEXTROSE 5%-WATER 100 ML IVPB SCH (13:31)
--- NOTE | 2018-05-23 18:35 | CONSULT ---
Consult Consult Specialty:: endocrine Referred by:: dr.rabadi noel Reason for Consultation:: diabetes mellitus uncontrolled - History of Present Illness Chief Complaint: foot infection History of Present Illness: 88 year old male with a significant past medical history of peripheral vascular disease and non-insulin dependent diabetes who presents to the emergency department for evaluation of left toe pain. The. Pt presents with a left great toe nail bed infection that has been ongoing for 3 weeks. He notes the pain is exacerbated with toe movement. He notes a decrease in sensation of both feet,nm bone scan showed osteomyelites first toe. he admits noncompliance with diet and does not check sugars at home.denies nausea and vomiting. - History Source History Provided By: Patient - Alcohol/Substance Use Hx Alcohol Use: No - Smoking History Smoking history: Unknown if ever smoked Have you smoked in the past 12 months: No Home Medications - Allergies Allergies/Adverse Reactions: Allergies Allergy/AdvReac Type Severity Reaction Status Date / Time tomato Allergy Mild Itching Verified 05/20/18 14:05 - Home Medications Home Medications: Ambulatory Orders Aspirin [Megan Chewable] 81 mg PO DAILY 09/03/15 Glipizide/Metformin HCl [Glipizide-Metformin 5-500 mg] 1 tab PO BID 05/20/18 Metoprolol Succinate 25 mg PO DAILY 05/20/18 Ticagrelor [Brilinta -] 90 mg PO BID 05/20/18 Review of Systems - Review of Systems Constitutional: reports: Weakness Eyes: reports: No Symptoms HENT: reports: No Symptoms Neck: reports: No Symptoms Cardiovascular: reports: Shortness of Breath Respiratory: reports: Exercise Intolerance, SOB on Exertion Gastrointestinal: reports: Constipation Genitourinary: reports: No Symptoms Neurological: reports: Numbness, Weakness Physical Exam Vital Signs: Vital Signs Temperature 97.5 F L 05/23/18 17:40 Pulse Rate 63 05/23/18 17:40 Respiratory Rate 20 05/23/18 17:40 Blood Pressure 166/73 05/23/18 17:40 O2 Sat by Pulse Oximetry (%) 100 05/23/18 09:00 Constitutional: Yes: Anxious Eyes: Yes: EOM Intact HENT: Yes: Normocephalic Neck: Yes: Trachea Midline Cardiovascular: Yes: Regular Rate and Rhythm Respiratory: Yes: CTA Bilaterally Gastrointestinal: Yes: Normal Bowel Sounds ...Rectal Exam: Yes: Deferred Renal/: Yes: WNL Musculoskeletal: Yes: WNL Edema: No Integumentary: Yes: Onychomycosis, Venous Stasis Changes Wound/Incision: Yes: Dressing Dry and Intact Neurological: Yes: Alert, Oriented Labs: CBC, BMP 05/22/18 06:30 05/22/18 06:30 Problem List - Problems (1) Diabetes Code(s): E11.9 - TYPE 2 DIABETES MELLITUS WITHOUT COMPLICATIONS Qualifiers: Diabetes mellitus type: other specified (including SHIN) Diabetes mellitus longterm insulin use: unspecified longterm insulin use status Diabetes mellitus complication status: with unspecified complications Qualified Code(s) : E13.8 - Other specified diabetes mellitus with unspecified complications (2) Diabetic foot ulcer with osteomyelitis Code(s): E11.621 - TYPE 2 DIABETES MELLITUS WITH FOOT ULCER; E11.69 - TYPE 2 DIABETES MELLITUS WITH OTHER SPECIFIED COMPLICATION; L97.509 - NON-PRESSURE CHRONIC ULCER OTH PRT UNSP FOOT W UNSP SEVERITY; M86.9 - OSTEOMYELITIS, UNSPECIFIED (3) Diabetic neuropathy Code(s): E11.40 - TYPE 2 DIABETES MELLITUS WITH DIABETIC NEUROPATHY, UNSP (4) Osteomyelitis Code(s): M86.9 - OSTEOMYELITIS, UNSPECIFIED (5) PVD (peripheral vascular disease) Code(s): I73.9 - PERIPHERAL VASCULAR DISEASE, UNSPECIFIED (6) Wound infection Code(s): T14.8XXA - OTHER INJURY OF UNSPECIFIED BODY REGION, INITIAL ENCOUNTER; L08.9 - LOCAL INFECTION OF THE SKIN AND SUBCUTANEOUS TISSUE, UNSP (7) Pins and needles sensation Code(s): R20.2 - PARESTHESIA OF SKIN Assessment/Plan Current Active Problems Diabetes (Acute) Diabetic foot ulcer with osteomyelitis (Acute) Diabetic neuropathy (Acute) Osteomyelitis (Acute) PVD (peripheral vascular disease) (Acute) Wound infection (Acute) Laboratory Results - last 24 hr 05/22/18 05/23/18 05/23/18 21:53 06:54 12:28 POC Glucometer 173 132 241 05/23/18 17:41 POC Glucometer 143 Laboratory Tests 05/22/18 05/22/18 05/22/18 06:30 06:30 11:24 Sodium 143 Potassium 3.7 Chloride 110 H Carbon Dioxide 22 Anion Gap 11 BUN 12 Creatinine 1.1 Creat Clearance w eGFR > 60 POC Glucometer 224 Random Glucose 114 H D Hemoglobin A1c % 8.5 H 05/22/18 05/22/18 05/23/18 16:53 21:53 06:54 Sodium Potassium Chloride Carbon Dioxide Anion Gap BUN Creatinine Creat Clearance w eGFR POC Glucometer 124 173 132 Random Glucose Hemoglobin A1c % 05/23/18 12:28 Sodium Potassium Chloride Carbon Dioxide Anion Gap BUN Creatinine Creat Clearance w eGFR POC Glucometer 241 Random Glucose Hemoglobin A1c % plan: add januvia 100mg daily glipizide metformin 5/500 bid levemir 20 units daily vns to home care
[2018-05-23] MEDS: ROSUVASTATIN CA 5 MG TABLET (FP) PO SCH (21:55)
[2018-05-24] MEDS: glipiZIDE 5 MG TABLET (FP) PO SCH (06:40)
[2018-05-24] MEDS ORDERED: INSULIN (LEVEMIR) 100 UNITS/ML UNITS SQ SCH (07:00)
[2018-05-24] MEDS ORDERED: metFORMIN HCL 500 MG TABLET (FP) PO SCH (07:00)
[2018-05-24] MEDS ORDERED: sitaGLIPtin PHOSPHATE 50 MG TABLET PO SCH (07:00)
[2018-05-24] MEDS: INSULIN SLIDING SCALE (NOVOLOG) 1 VIAL SQ SCH ×2 (08:17→12:11)
[2018-05-24] MEDS ORDERED: DEXTROSE 5%-WATER 100 ML IVPB ONE (08:56)
[2018-05-24] MEDS ORDERED: PT OWN MED DRAWER 7, Y5N ONE (09:03)
[2018-05-24] MEDS: TICAGRELOR 90 MG TABLET PO SCH (09:07)
[2018-05-24] MEDS: CEFTRIAXONE 2 GM in DEXTROSE 5%-WATER 100 ML IVPB SCH (09:08)
[2018-05-24] MEDS: metoPROLOL SUCCINATE 25 MG TAB.SR.24H (FP) PO SCH (11:33)
--- NOTE | 2018-05-24 11:38 | PN ---
Progress Note, Physician History of Present Illness: patient doing well no new issues all the cx reports noted - Current Medication List Current Medications: Active Medications Acetaminophen (Tylenol -) 650 mg PO Q6H PRN PRN Reason: PAIN OR FEVER Glipizide (Glucotrol -) 5 mg PO BID@0700,1630 [facility] Last Admin: 05/24/18 06:40 Dose: 5 mg Ceftriaxone Sodium 2 gm/ (Dextrose) 100 mls @ 200 mls/hr IVPB DAILY [facility]; Protocol Last Admin: 05/24/18 09:08 Dose: 200 mls/hr Insulin Aspart (Novolog Vial Sliding Scale -) 1 vial SQ ACHS [facility]; Protocol Last Admin: 05/24/18 08:17 Dose: Not Given Insulin Detemir (Levemir Vial) 20 units SQ AM [facility] Last Admin: 05/24/18 06:40 Dose: 20 unit Metformin HCl (Glucophage -) 500 mg PO BID@0700,1630 [facility] Last Admin: 05/24/18 06:40 Dose: 500 mg Metoprolol Succinate (Toprol Xl -) 25 mg PO DAILY [facility] Last Admin: 05/24/18 11:33 Dose: 25 mg Rosuvastatin Calcium (Crestor -) 5 mg PO HS [facility] Last Admin: 05/23/18 21:55 Dose: 5 mg Sitagliptin Phosphate (Januvia -) 100 mg PO DAILY@0700 [facility] Last Admin: 05/24/18 06:40 Dose: 100 mg Ticagrelor (Brilinta -) 90 mg PO BID [facility] Last Admin: 05/24/18 09:07 Dose: 90 mg - Objective Vital Signs: Vital Signs Temperature 97.8 F 05/24/18 07:40 Pulse Rate 79 05/24/18 07:40 Respiratory Rate 18 05/24/18 07:40 Blood Pressure 143/80 05/24/18 07:40 O2 Sat by Pulse Oximetry (%) 100 05/23/18 09:00 Constitutional: Yes: No Distress, Calm Cardiovascular: Yes: S1, S2 Respiratory: Yes: Regular, CTA Bilaterally Gastrointestinal: Yes: Normal Bowel Sounds, Soft Musculoskeletal: Yes: WNL Extremities: Yes: Other Neurological: Yes: Alert, Oriented Psychiatric: Yes: Alert, Oriented Labs: CBC, BMP 05/22/18 06:30 05/22/18 06:30 INR, PTT INR 1.17 (0.83-1.09) H 05/20/18 15:00 Assessment/Plan Problem List - Problems (1) Diabetes Code(s): E11.9 - TYPE 2 DIABETES MELLITUS WITHOUT COMPLICATIONS Qualifiers: Diabetes mellitus type: other specified (including SHIN) Diabetes mellitus local intermodal truck driver insulin use: unspecified local intermodal truck driver insulin use status Diabetes mellitus complication status: with unspecified complications Qualified Code(s) : E13.8 - Other specified diabetes mellitus with unspecified complications (2) PVD (peripheral vascular disease) Code(s): I73.9 - PERIPHERAL VASCULAR DISEASE, UNSPECIFIED (3) Wound infection Code(s): T14.8XXA - OTHER INJURY OF UNSPECIFIED BODY REGION, INITIAL ENCOUNTER; L08.9 - LOCAL INFECTION OF THE SKIN AND SUBCUTANEOUS TISSUE, UNSP Assessment/Plan 88 y.o. male with PMH of NIDDM, PVD, Lt 1st toe trauma/wound presenting with Lt toe/foot erythema/purulent drainage x 3 wks, decreased sensation in feet. Triple -phase bone scan results and microbiology results noted Lt distal 1st toe cellulitis/ Acute OM / culture - MSSA and Streptococcus sp. in wound cultures Streptococcal bacteremia NIDDM PVD plan patient will need iv ceftriaxone 2gm daily for 6 weeks follow cbc bmp esr and crp weekly
--- NOTE | 2018-05-24 12:04 | PN ---
Progress Note (short form) - Note Progress Note: 88yo M admitted to the hospital for Left foot cellulitis, vascular surgery was called to evaluate pt. Pt is known to service and was seen in Vascular surgery clinic on 05/10. Pt has known history of severe PAD and is followed as an outpatient with conservative therapy. Pt states that he feels much better and really wants to go home today. Pt denies foot or leg pain. History of heavy smoker quit in 2004. Last Vital Signs Temp Pulse Resp BP Pulse Ox 97.8 F 79 18 143/80 100 05/24/18 07:40 05/24/18 07:40 05/24/18 07:40 05/24/18 07:40 05/23/18 09:00 CBC, BMP 05/22/18 06:30 05/22/18 06:30 PE: Gen: A&O x3 Resp: breathing comfortably Ext: pedal pulses absent, feet warm b/l, no wounds or ulcers. no edema Assessment/Plan: Severe PAD -continue Brilinta/aspirin -no surgical intervention at this time -follow up for outpatient arterial US on 06/09 and F/up appt with Dr. Redman on .
[2018-05-24] MEDS ORDERED: INSULIN (NOVOLOG) ASPART 100 UNITS/ML 10ML VIAL ONE (12:26)
[2018-05-24 12:44] VITALS: BP 117/69; PULSE 69; TEMP 97.9
[2018-05-24] MEDS ORDERED: PICC LINE 8 ML FLUSH PROTOCOL IVPUSH PRN (13:18)
--- NOTE | 2018-05-24 14:38 | DS ---
Physical Examination Vital Signs: Vital Signs Temperature 97.9 F 05/24/18 10:00 Pulse Rate 69 05/24/18 10:00 Respiratory Rate 18 05/24/18 10:00 Blood Pressure 117/69 05/24/18 10:00 O2 Sat by Pulse Oximetry (%) 100 05/23/18 09:00 Findings/Remarks: This is an 88 YOM with h/o NIDDM, PVD s/p leg stenting, and HTN who was instructed to come to the ED for admission by Dr. Goodwin. The patient reports that for the past few weeks he has had a worsening infection to the left great toe in the nailbed, and the nail of this digit is chronically infected with onychomycosis. The patient notes pain when he touches or moves the area, and also notes worsening swelling and redness to the area. He denies any systemic symptoms (no f/c/n/v/d/c, streaking redness, or other new symptoms) . He was at a wound care appointment for this wound earlier today and based on his evaluation there he was instructed to come to the ED. Constitutional: Yes: Well Nourished, No Distress, Calm Cardiovascular: Yes: Regular Rate and Rhythm Respiratory: Yes: Regular Gastrointestinal: Yes: Normal Bowel Sounds, Soft Musculoskeletal: Yes: WNL Extremities: Yes: WNL Edema: No Peripheral Pulses WNL: Yes Wound/Incision: Yes: Dressing Dry and Intact Neurological: Yes: Alert, Oriented Psychiatric: Yes: Alert, Oriented Labs: CBC, BMP 05/22/18 06:30 05/22/18 06:30 Discharge Summary Reason For Visit: LOCAL INFECTION OF WOUND; DIABETES MELLITUS Current Active Problems Diabetes (Acute) Diabetic foot ulcer with osteomyelitis (Acute) Diabetic neuropathy (Acute) Osteomyelitis (Acute) PVD (peripheral vascular disease) (Acute) Wound infection (Acute) Condition: Stable - Instructions Diet, Activity, Other Instructions: Ceftriaxone 2 gm daily for 6 weeks Follow up with PCP within 1 week, for cbc bmp esr and crp weekly follow up for outpatient arterial US on 06/09 and F/up appt with Dr. Redman on . Referrals: Prabhakar Monique MD [Primary Care Provider] - Disposition: VNS/HOME HEALTH CARE - Home Medications Comprehensive Discharge Medication List: Ambulatory Orders Aspirin [Megan Chewable Aspirin] 81 mg PO DAILY 09/03/15 Glipizide/Metformin HCl [Glipizide-Metformin 5-500 mg] 1 tab PO BID 05/20/18 Metoprolol Succinate 25 mg PO DAILY 05/20/18 Ticagrelor [Brilinta -] 90 mg PO BID 05/20/18 Ceftriaxone [Rocephin -] 2 gm IVPB DAILY vial 05/24/18 Rosuvastatin [Crestor -] 5 mg PO HS #30 tablet 05/24/18 Sitagliptin Phosphate [Januvia -] 100 mg PO DAILY@0700 #30 tablet 05/24/18
== END 2018-05-24 16:26 | disposition home health service (06) | DRG 300 ==
LOC: JER 14:00 → JERBED 16:03 → J8W 17:00
PROVIDERS: ADMIT Family Medicine; ATTEND Family Medicine
PROC: 02HV33Z Insertion of Infusion Device into Superior Vena Cava, Percutaneous Approach (ICD-10-PCS; principal; 2018-05-24)
PROC: B548ZZA Ultrasonography of Superior Vena Cava, Guidance (ICD-10-PCS; 2018-05-24)
DX: E11.51 Type 2 diabetes mellitus with diabetic peripheral angiopathy without gangrene (principal); L03.116 Cellulitis of left lower limb; M86.172 Other acute osteomyelitis, left ankle and foot; R78.81 Bacteremia; E11.69 Type 2 diabetes mellitus with other specified complication; E11.621 Type 2 diabetes mellitus with foot ulcer; I10 Essential (primary) hypertension; Z79.84 Long term (current) use of oral hypoglycemic drugs; I44.0 Atrioventricular block, first degree; L97.529 Non-pressure chronic ulcer of other part of left foot with unspecified severity; E11.40 Type 2 diabetes mellitus with diabetic neuropathy, unspecified; Z79.4 Long term (current) use of insulin; B95.4 Other streptococcus as the cause of diseases classified elsewhere
CPT/HCPCS: 36415; 36569; 71045-TC-FY; 73660-TC-LT-FY; 76942-TC; 77001-TC-FY; 78315-TC; 80053; 80061; 82962; 83036; 83605; 83721; 85025; 85027; 85610; 85651; 85730; 86140; 86850; 86900; 86901; 87040; 87070; 87186; 87205; 93005; 93010; 99283-25; A9503; C1751; G0463-25; J7030